=== PATIENT | male | born 1980 | race Caucasian/White ===

== ENCOUNTER 2017-08-07 22:57 | Emergency (ER) | payer OTHER ==
[2017-08-07] MEDS ORDERED: Ketorolac Tromethamine 60 MG/2 ML VIAL ONE (23:19)
[2017-08-07 23:37] LABS: #Basophils 0.1 thou/uL (0.0-0.2); #Eosinphils 0.4 thou/uL (0.0-0.7); #Lymphocytes 2.8 thou/uL (1.20-3.40); #Neutrophils 9.3 thou/uL (1.40-6.50); %Basophils 1.1 % (0.0-1.0); %Eosinophils 3.2 % (0.0-10.0); %Lymphocytes 20.3 % (21.0-51.0); %Monocytes 7.2 % (0.0-10.0); %Neutrophils 68.2 % (42.0-75.0); Hemoglobin 14.8 g/dL (14.0-18.0); Mean Corpuscular HGB CONC 34.8 g/dL (32.0-36.0); Mean Corpuscular Hemoglobin 31.1 pg (27.0-31.0); Mean Corpuscular Volume 89.3 fL (78.0-98.0); Mean Platelet Volume 7.2 fL (7.4-10.4); Platelet Count 271 thou/uL (130-400); RBC Distribution Width 11.9 % (11.5-14.5); Red Blood Cell (RBC) Count 4.75 mill/uL (4.70-6.10); White Blood Cell (WBC) Count 13.6 thou/uL (4.8-10.8)
[2017-08-07] MEDS ORDERED: Cephalexin 500 MG CAP ONE (23:58)
[2017-08-07] MEDS ORDERED: Sulfameth/Trimethoprim DS 800-160mg TAB ONE (23:58)
== END 2017-08-08 00:02 | disposition home or self-care (01) ==
LOC: SCSER 22:57
DX: L03.116 Cellulitis of left lower limb (principal); F41.9 Anxiety disorder, unspecified; F32.9 Major depressive disorder, single episode, unspecified; F17.210 Nicotine dependence, cigarettes, uncomplicated
CPT/HCPCS: 85025; 85379; 96372; J1885

== ENCOUNTER 2017-11-28 08:04 | Outpatient (CLI) | payer OTHER ==
--- NOTE | 2017-11-28 09:47 | ULT ---
ULTRASOUND ABDOMEN: Date: 11/28/17 HISTORY: Elevated LFTs. COMPARISON: None. TECHNIQUE: Real-time Arora scale with color Doppler and spectral analysis of the abdomen was performed. FINDINGS: The visualized portions of the aorta, IVC, and pancreas are unremarkable. Liver measures 16.4 cm in l ength. No liver mass. Portal vein has patent antegrade flow. Right kidney measures 11.3 x 4.3 x 5.2 cm. Gallbladder is normal. Gallbladder wall thickness is eddy l. Left kidney measures 11.7 x 5.2 x 5.9 cm. No renal mass, hydronephrosis, or abnormal calcifications. Spleen measures 9.8 cm in length. No intrahepatic biliary dilatation. The common bile duct measures 4 .0 mm. IMPRESSION: Normal exam. POS: [facility]
== END 2017-11-28 08:05 | disposition home or self-care (01) ==
LOC: SCSULT 08:04
PROVIDERS: ATTEND Family Medicine
DX: R79.89 Other specified abnormal findings of blood chemistry (principal)
CPT/HCPCS: 76700

== ENCOUNTER 2018-11-06 10:19 | Outpatient (CLI) | payer OTHER | END 2018-11-06 10:20 | disposition home or self-care (01) | LOC: CTENTCT 10:19 | PROVIDERS: ATTEND Otolaryngology Plastic Surgery within the Head & Neck | DX: J32.9 Chronic sinusitis, unspecified (principal); J34.2 Deviated nasal septum | CPT/HCPCS: 70486 ==

== ENCOUNTER 2020-07-03 11:51 | Outpatient (CLI) | payer BC | END 2020-07-03 11:52 | disposition home or self-care (01) | LOC: CTENTCT 11:51 | PROVIDERS: ATTEND Otolaryngology Plastic Surgery within the Head & Neck | DX: J32.9 Chronic sinusitis, unspecified (principal) | CPT/HCPCS: 70486 ==